=== PATIENT | female | born 1975 | race Caucasian/White ===

== ENCOUNTER 2018-12-24 13:52 | Observation (INO) | payer OTHER ==
[2018-12-24] MEDS ORDERED: ASPIRIN 81 MG PO STA (14:03)
--- NOTE | 2018-12-24 14:09 | ED ---
General Adult HPI - General Chief complaint: Chest Pain Stated complaint: Chest discomfort Time Seen by Provider: 12/24/18 13:57 Source: patient, RN notes reviewed Mode of arrival: EMS Limitations: no limitations - History of Present Illness Initial comments: Patient is a pleasant 43-year-old female presenting to the emergency department chest discomfort. Onset of symptoms was less than an hour ago. Patient was at rest. Discomfort was severe. Discomfort felt like sharp or achy. Patient did have some mild associated dyspnea. No nausea or diaphoresis. Patient has had similar symptoms occur multiple times over the past 6 months or so. Patient states it is almost occurring twice a week now. Patient states today symptoms were more severe and lasted longer. Currently patient is symptom-free. No radiation of discomfort. - Related Data Home Medications Medication Instructions Recorded Confirmed Acetaminophen [Tylenol 8 Hour] 650 mg PO Q4H PRN 12/24/18 12/24/18 Calcium/Magnesium 1 tab PO TID PRN 12/24/18 12/24/18 Chlorpheniramine Maleate 4 mg PO Q4H PRN 12/24/18 12/24/18 [Chlor-Trimeton] Escitalopram [Lexapro] 20 mg PO DAILY 12/24/18 12/24/18 Gabapentin [Neurontin] 300 mg PO TID 12/24/18 12/24/18 Ibuprofen [Motrin] 600 mg PO Q6HR PRN 12/24/18 12/24/18 Mirtazapine [Remeron] 15 mg PO HS 12/24/18 12/24/18 Multivitamins, Thera [Multivitamin 1 tab PO DAILY 12/24/18 12/24/18 (formulary)] Ondansetron HCl [Zofran Oral Soln] 4 mg PO Q6H PRN 12/24/18 12/24/18 Ondansetron HCl [Zofran] 8 mg PO Q6HR PRN 12/24/18 12/24/18 Thiamine [Vitamin B-1] 100 mg PO DAILY 12/24/18 12/24/18 busPIRone HCl [Buspar] 10 mg PO TID PRN 12/24/18 12/24/18 Allergies Allergy/AdvReac Type Severity Reaction Status Date / Time No Known Allergies Allergy Unverified 12/24/18 14:17 Review of Systems ROS Statement: Those systems with pertinent positive or pertinent negative responses have been documented in the HPI. ROS Other: All systems not noted in ROS Statement are negative. Constitutional: Denies: fever Eyes: Denies: eye pain ENT: Denies: ear pain Respiratory: Reports: as per HPI. Denies: cough Cardiovascular: Reports: chest pain Endocrine: Denies: fatigue Gastrointestinal: Denies: abdominal pain Genitourinary: Denies: dysuria Musculoskeletal: Denies: back pain Skin: Denies: rash Neurological: Denies: weakness Past Medical History Past Medical History: No Reported History History of Any Multi-Drug Resistant Organisms: None Reported Past Surgical History: Hysterectomy Past Psychological History: Anxiety, Bipolar, Depression Smoking Status: Current every day smoker Past Alcohol Use History: None Reported Past Drug Use History: None Reported, Prescription Drug Abuse General Exam Limitations: no limitations General appearance: alert, in no apparent distress Head exam: Present: atraumatic, normocephalic Eye exam: Present: normal appearance Neck exam: Present: normal inspection Respiratory exam: Present: normal lung sounds bilaterally. Absent: chest wall tenderness Cardiovascular Exam: Present: regular rate, normal rhythm Expanded Peripheral pulses: 2+: Radial (R), Radial (L), Posterior Tibialis (R), Posterior Tibialis (L) GI/Abdominal exam: Present: soft. Absent: distended, tenderness Extremities exam: Present: normal inspection. Absent: pedal edema, calf tenderness Neurological exam: Present: alert Psychiatric exam: Present: normal affect, normal mood Skin exam: Present: normal color Course Vital Signs 12/24/18 12/24/18 12/24/18 14:00 14:09 14:10 Temperature 99.0 F Pulse Rate 72 83 71 Respiratory 18 38 H 18 Rate Blood Pressure 109/69 O2 Sat by Pulse 96 93 L 94 L Oximetry 12/24/18 12/24/18 12/24/18 14:20 14:30 14:40 Temperature Pulse Rate 60 73 72 Respiratory 7 L 12 16 Rate Blood Pressure O2 Sat by Pulse 97 97 97 Oximetry 12/24/18 12/24/18 12/24/18 14:50 15:00 15:10 Temperature Pulse Rate 80 80 62 Respiratory 14 6 L 13 Rate Blood Pressure O2 Sat by Pulse 98 99 Oximetry 12/24/18 12/24/18 12/24/18 15:20 15:30 15:40 Temperature Pulse Rate 66 71 86 Respiratory 9 L 6 L 10 L Rate Blood Pressure 99/61 107/67 O2 Sat by Pulse 98 99 98 Oximetry 12/24/18 12/24/18 15:50 16:00 Temperature Pulse Rate 72 93 Respiratory 12 10 L Rate Blood Pressure 107/67 107/67 O2 Sat by Pulse 98 Oximetry EKG Findings - EKG Comments: EKG Findings:: Normal sinus rhythm at 67. KS 154. QRS 78. QT 464. QTC 490. Normal axis. Normal QRS. No acute ST change. Medical Decision Making - Medical Decision Making Patient reevaluated and resting comfortably in bed, symptom-free at this time. Patient updated on results and plan. Case was discussed in detail with Dr. Chavira, who will admit covered for hospital call. - Lab Data Result diagrams: 12/24/18 14:07 12/24/18 14:07 Lab Results 12/24/18 12/24/18 12/24/18 Range/Units 14:07 14:07 14:07 WBC 8.0 (3.8-10.6) k/uL RBC 4.47 (3.80-5.40) m/uL Hgb 13.1 (11.4-16.0) gm/dL Hct 39.2 (34.0-46.0) % MCV 87.8 (80.0-100.0) fL MCH 29.2 (25.0-35.0) pg MCHC 33.3 (31.0-37.0) g/dL RDW 13.2 (11.5-15.5) % Plt Count 329 (150-450) k/uL Neutrophils % 61 % Lymphocytes % 31 % Monocytes % 4 % Eosinophils % 2 % Basophils % 1 % Neutrophils # 4.9 (1.3-7.7) k/uL Lymphocytes # 2.5 (1.0-4.8) k/uL Monocytes # 0.3 (0-1.0) k/uL Eosinophils # 0.2 (0-0.7) k/uL Basophils # 0.1 (0-0.2) k/uL PT 10.7 (9.0-12.0) sec INR 1.0 (<1.2) D-Dimer <0.17 (<0.60) mg/L FEU Sodium 144 (137-145) mmol/L Potassium 4.0 (3.5-5.1) mmol/L Chloride 114 H (98-107) mmol/L Carbon Dioxide 22 (22-30) mmol/L Anion Gap 8 mmol/L BUN 9 (7-17) mg/dL Creatinine 0.62 (0.52-1.04) mg/dL Est GFR (CKD-EPI)AfAm >90 (>60 ml/min/1.73 sqM) Est GFR (CKD-EPI)NonAf >90 (>60 ml/min/1.73 sqM) Glucose 85 (74-99) mg/dL Calcium 9.8 (8.4-10.2) mg/dL Magnesium 2.0 (1.6-2.3) mg/dL Total Bilirubin 0.5 (0.2-1.3) mg/dL AST 13 L (14-36) U/L ALT 13 (9-52) U/L Alkaline Phosphatase 71 (38-126) U/L Creatine Kinase 40 (30-135) U/L Troponin I (0.000-0.034) ng/mL Total Protein 6.6 (6.3-8.2) g/dL Albumin 4.2 (3.5-5.0) g/dL 12/24/18 Range/Units 14:07 WBC (3.8-10.6) k/uL RBC (3.80-5.40) m/uL Hgb (11.4-16.0) gm/dL Hct (34.0-46.0) % MCV (80.0-100.0) fL MCH (25.0-35.0) pg MCHC (31.0-37.0) g/dL RDW (11.5-15.5) % Plt Count (150-450) k/uL Neutrophils % % Lymphocytes % % Monocytes % % Eosinophils % % Basophils % % Neutrophils # (1.3-7.7) k/uL Lymphocytes # (1.0-4.8) k/uL Monocytes # (0-1.0) k/uL Eosinophils # (0-0.7) k/uL Basophils # (0-0.2) k/uL PT (9.0-12.0) sec INR (<1.2) D-Dimer (<0.60) mg/L FEU Sodium (137-145) mmol/L Potassium (3.5-5.1) mmol/L Chloride (98-107) mmol/L Carbon Dioxide (22-30) mmol/L Anion Gap mmol/L BUN (7-17) mg/dL Creatinine (0.52-1.04) mg/dL Est GFR (CKD-EPI)AfAm (>60 ml/min/1.73 sqM) Est GFR (CKD-EPI)NonAf (>60 ml/min/1.73 sqM) Glucose (74-99) mg/dL Calcium (8.4-10.2) mg/dL Magnesium (1.6-2.3) mg/dL Total Bilirubin (0.2-1.3) mg/dL AST (14-36) U/L ALT (9-52) U/L Alkaline Phosphatase (38-126) U/L Creatine Kinase (30-135) U/L Troponin I <0.012 (0.000-0.034) ng/mL Total Protein (6.3-8.2) g/dL Albumin (3.5-5.0) g/dL - Radiology Data Radiology results: image reviewed (Chest x-ray shows no acute process) Disposition Clinical Impression: Chest pain Disposition: ADMITTED IP TO THIS [facility] Is patient prescribed a controlled substance at d/c from ED?: No Referrals: Ever Cheney DO [Primary Care Provider] - 1-2 days Decision Time: 16:15
[2018-12-24 14:23] LABS: Basophils # (A) 0.1 k/uL (0-0.2); Basophils % (A) 1 %; Eosinophils # (A) 0.2 k/uL (0-0.7); Eosinophils % (A) 2 %; HCT 39.2 % (34.0-46.0); HGB 13.1 gm/dL (11.4-16.0); Lymphocytes # (A) 2.5 k/uL (1.0-4.8); Lymphocytes % (A) 31 %; MCH 29.2 pg (25.0-35.0); MCHC 33.3 g/dL (31.0-37.0); MCV 87.8 fL (80.0-100.0); Mean Platelet Volume 7.3; Monocytes # (A) 0.3 k/uL (0-1.0); Monocytes % (A) 4 %; Neutrophils # (A) 4.9 k/uL (1.3-7.7); Neutrophils % (A) 61 %; Platelet Count 329 k/uL (150-450); RBC 4.47 m/uL (3.80-5.40); RDW 13.2 % (11.5-15.5)
[2018-12-24 14:35] LABS: ALT 13 U/L (9-52); AST 13 U/L (14-36); Albumin 4.2 g/dL (3.5-5.0); Alkaline Phosphatase 71 U/L (38-126); Anion Gap 8 mmol/L; Blood Urea Nitrogen 9 mg/dL (7-17); Calcium 9.8 mg/dL (8.4-10.2); Carbon Dioxide 22 mmol/L (22-30); Chloride 114 mmol/L (98-107); Glucose 85 mg/dL (74-99); Sodium 144 mmol/L (137-145); Total Bilirubin 0.5 mg/dL (0.2-1.3); Total Protein 6.6 g/dL (6.3-8.2)
[2018-12-24 14:51] LABS: Creatine Kinase 40 U/L (30-135)
[2018-12-24 15:00] LABS: D-Dimer <0.17 mg/L FEU (<0.60); Prothrombin Time 10.7 sec (9.0-12.0)
--- NOTE | 2018-12-24 15:15 | XR ---
EXAMINATION TYPE: XR chest 2V DATE OF EXAM: 12/24/2018 COMPARISON: NONE HISTORY: Chest pain TECHNIQUE: Frontal and lateral views of the chest are obtained. FINDINGS: Heart and mediastinum are normal. Lungs are clear. Costophrenic angles are clear. Bony tho rax is intact. There are chest leads. IMPRESSION: Normal chest
[2018-12-24] MEDS ORDERED: NITROGLYCERIN SL TABS 0.4 MG TAB SUBLINGUAL PRN (16:15)
[2018-12-24] MEDS ORDERED: NITROGLYCERIN OINT 1 INCH/GM PACKET TOPICAL SCH (18:00)
[2018-12-24] MEDS ORDERED: NICOTINE 21MG/24HR PATCH TRANSDERM STA (18:07)
[2018-12-24] MEDS ORDERED: ALPRAZolam 0.5 MG TAB PO STA (18:38)
[2018-12-24 19:29] VITALS: RESP 16
--- NOTE | 2018-12-24 22:03 | HP ---
HISTORY AND PHYSICAL CHIEF COMPLAINT: Chest pain. HISTORY OF PRESENT ILLNESS: This is the first admission for this 43-year-old white female. She presented to the emergency room with an episode of sharp, stabbing pain in the center of the chest associated with tingling in both arms and hands. She was slightly short of breath, but not nauseated. She has otherwise been healthy. She does have a family history of heart disease. REVIEW OF SYSTEMS: She has had no syncope, neurologic problems, difficulty with vision or hearing, cough, hemoptysis, sputum production, murmurs, fever, hypertension, abdominal pain, hiatal hernia, esophagitis, GERD, nausea, vomiting, hematemesis, melena, hematochezia, jaundice, hepatitis, cirrhosis, hematuria, frequency, urgency, arthralgias, diabetes, etc. Past medical history, family history and personal and social history is unremarkable and noncontributory except that she has had a hysterectomy. She is not allergic to any medications. MEDICATIONS: Include gabapentin, Lexapro, BuSpar, and Xanax. Maternal side of the family has significant coronary artery problems. She smokes a pack of cigarettes a day. PHYSICAL EXAM: Blood pressure is 107/67, pulse 72, respiration 12, and she is afebrile. In general, she appeared to be well developed, well nourished, no acute distress. Skin color is normal. Skin is warm and dry. Lymph nodes are not enlarged. Head, ears, eyes, nose, mouth, and throat were normal. Neck veins not distended. Thyroid not enlarged. Chest is clear. Cardiac exam is normal. Abdomen is soft, nontender. Extremities normal. Neurologically she is intact. IMPRESSION: 1. Chest pain, noncardiac. 2. Probable hyperventilation syndrome. 3. Family history of heart disease. 4. Chronic obstructive pulmonary disease. PLAN: 1. Bed rest. 2. IV fluids. 3. Serial EKGs and enzymes. MMODL / IJN: [id number] /
[2018-12-24 22:08] VITALS: BP 117/74; PULSE 73; TEMP 98.4
[2018-12-25] MEDS ORDERED: ASPIRIN 325 MG TAB PO SCH (09:00)
== END 2018-12-24 22:09 | disposition left against medical advice (07) ==
LOC: EC 13:52 → 1SOBS 16:15
PROVIDERS: ADMIT Family Medicine; ATTEND Family Medicine
DX: R07.89 Other chest pain (principal); R06.00 Dyspnea, unspecified; R06.02 Shortness of breath; R20.2 Paresthesia of skin; F31.9 Bipolar disorder, unspecified; F41.9 Anxiety disorder, unspecified; J44.9 Chronic obstructive pulmonary disease, unspecified; F17.210 Nicotine dependence, cigarettes, uncomplicated; Z79.899 Other long term (current) drug therapy; Z82.49 Family history of ischemic heart disease and other diseases of the circulatory system; Z53.21 Procedure and treatment not carried out due to patient leaving prior to being seen by health care provider
CPT/HCPCS: 99285; 36415; 93005; 85379; 80053; 82550; 83735; 84484; 85025; 85610; 85730; 71046; G0378; S4990